=== PATIENT | female | born 1965 | race African-American/Black ===

== ENCOUNTER → 2016-07-27 18:35 | Outpatient (CLI) | payer MEDICAID | END | disposition home or self-care (01) | LOC: D.LABREF 18:35 | DX: M17.11 Unilateral primary osteoarthritis, right knee (principal) ==

== ENCOUNTER 2016-09-15 09:30 | Inpatient (IN) | payer MEDICAID ==
[~2016-09-15] VITALS: Ht 160 cm; Wt 130.9 kg
[2016-09-15 09:00] LABS: BASOPHILS 0.1 % (0-2); EOSINOPHILS 0.4 % (0-7); HEMOGLOBIN 13.4 g/dL (12-16); IMMATURE GRANULOCYTES 0.3 % (0-5); LYMPHOCYTES 37.3 % (15-50); MCH 31.5 pg (26.0-34.0); MCHC 31.9 g/dL (31.0-37.0); MCV 98.8 fL (80.0-100.0); MEAN PLATELET VOLUME 10.6 fL (7.4-10.4); MONOCYTES 7.4 % (2-11); NEUTROPHILS 54.5 % (40-80); PLATELET COUNT 247 10x3/uL (130-400); RBC 4.25 10x6/uL (4.00-5.40); WBC 6.9 10x3/uL (4.8-10.8)
[2016-09-15 09:18] LABS: CALC OSMOLALITY 276 mosm/kg (275-300); CALCIUM 9.5 mg/dL (8.5-10.1); CARBON DIOXIDE 28.7 mmol/L (21.0-32.0); CHLORIDE - SERUM 102 mmol/L (98-107); CREATININE - SERUM 0.8 mg/dL (0.6-1.3); GLUCOSE 91 mg/dL (74-106); POTASSIUM - SERUM 3.7 mmol/L (3.5-5.1); SODIUM 138 mmol/L (136-145); UREA NITROGEN 14 mg/dL (7-18); eGFR NON AFRICAN AMERICAN 80 mL/min (90-120)
[2016-09-15 09:20] LABS: INR 0.95 (0.85-1.17); PROTIME 12.5 SECONDS (11.6-15.0)
[2016-09-15 09:21] LABS: APTT 25.8 SECONDS (22.8-39.4)
[~2016-09-15 09:30] MED LIST: MUPIROCIN22 GM TOPICAL; NORVASC5 MG PO; TYLENOL #4 W/CO1 TAB PO; ZANTAC150 MG PO; ZOCOR40 MG PO; ZOLOFT50 MG PO
[2016-09-15 09:46] LABS: APPEARANCE HAZY (CLEAR); BILIRUBIN NEGATIVE (NEGATIVE); COLOR YELLOW (YELLOW); GLUCOSE NEGATIVE (NEGATIVE); KETONE NEGATIVE (NEGATIVE); LEUKOCYTE ESTERASE TRACE (NEGATIVE); NITRITE NEGATIVE (NEGATIVE); PROTEIN NEGATIVE (NEGATIVE); SPECIFIC GRAVITY 1.015 (1.005-1.020); UROBILINOGEN NORMAL (NORMAL)
[2016-09-15 09:47] LABS: BACTERIA MODERATE /hpf (NONE SEEN); EPITHELIAL CELLS 0-5 /hpf (0-5); MUCUS <1+ /lpf (NONE SEEN); WHITE CELLS - URINE 0-5 /hpf (0-5)
--- NOTE | 2016-09-15 13:53 | NUR ---
1000-DR LUCIA NOTIFIED OF ABNORMAL UA RESULTS. ORDERS RECD TO CALL IN BACTRIM DS 1 PO BID X 4 DAYS. CALLED TO [facility] IN [place]. 1015-ATTEMPTED TO REACH PATIENT TO LEAF COVERER PRESCRIPTION. NO ANSWER. 1200-ATTEMPTED TO REACH PATIENT TO LEAF COVERER PRESCRIPTION. NO ANSWER. 1345-PATIENT NOTIFIED OF UTI AND NEED TO LEAF COVERER PRESCRIPTION FOR BACTRIM. STRESSED IMPORTANCE OR SURGERY CAN BE CANCELLED IF UTI IS STILL PRESENT DAY OF SURGERY.
[2016-09-19] VITALS (12 sets, daily range): BP systolic 106–148; BP diastolic 50–98; Ht 160 cm; Wt 130.9 kg
[2016-09-19 06:13] LABS: HCG URINE NEGATIVE (NEGATIVE)
[2016-09-19 06:33] LABS: APPEARANCE CLEAR (CLEAR); BILIRUBIN NEGATIVE (NEGATIVE); COLOR YELLOW (YELLOW); GLUCOSE NEGATIVE (NEGATIVE); KETONE NEGATIVE (NEGATIVE); LEUKOCYTE ESTERASE NEGATIVE (NEGATIVE); NITRITE NEGATIVE (NEGATIVE); PROTEIN NEGATIVE (NEGATIVE); SPECIFIC GRAVITY 1.015 (1.005-1.020); UROBILINOGEN NORMAL (NORMAL)
--- NOTE | 2016-09-19 09:28 | NUR ---
WOUND VAC TO RIGHT KNEE INTACT
--- NOTE | 2016-09-19 09:45 | NUR ---
PATIENT RECEIVED TO FLOOR FROM PACU VIA BED. PATIENT A/O X4. NO SIGNS OF DISTRESS NOTED. DENIES PAIN. DRESSING TO RIGHT KNEE CLEAN, DRY AND INTACT. PREVENA DRESSING INTACT. ORIENTED TO ROOM. SCDS ON BILATERALLY. INCENTIVE SPIROMETER AND TEACHING PROVIDED. STATES UNDERSTANDING AND DEMONSTRATES CORRECT USE. EXPLAINED TO PATIENT SHE WOULD BE ON BEDREST TODAY AND PHYSICAL THERAPY WOULD HAVE HER UP AND MOVING SOME TOMORROW. STATES UNDERSTANDING. DENIES NEEDS. SIDE RAILS UP X3. BED IN LOW POSITION. CALL LIGHT IN REACH. BED ALARM ON. YELLOW FALL RISK BAND PLACE ON PATIENT. WILL CONTINUE TO MONITOR.
--- NOTE | 2016-09-19 12:48 | NUR ---
PATIENT ALERT IN BED TALKING ON PHONE. NO SIGNS OF DISTRESS NOTED. SCHEDULED IV ABX INITIATED. SIDE RAILS UP X2. BED IN LOW POSITION. CALL LIGHT IN REACH.
--- NOTE | 2016-09-19 14:20 | NUR ---
ALERT IN BED WATCHING TV. NO SIGNS OF DISTRESS NOTED. DENIES PAIN. SIDE RAILS UP X2. BED IN LOW POSITION. CALL LIGHT IN REACH. BED ALARM ON.
--- NOTE | 2016-09-19 15:29 | NUR ---
Patient Name: BARBARA BEAR Admission Status: Elective Accout number: [id number] Admission Date: 09-19-2016 : 1965 Admission Diagnosis: Attending: CONNIE Current LOS: 1 Anticipated DC Date: Planned Disposition: Primary Insurance: [place] Discharge Planning Comments: CM met with patient to assess discharge planning/needs. Patient states that she lives at home with her adult children (24&16) & her sister. She has 2 steps to enter without a rail. Her discharge plan is to return home via [facility] and have OP PT in [place]. CM will set up all necessary equipment prior to discharge. CM will continue to follow and assist. PCP: [facility]: Transportation: [facility] Batting Machine Operator Insulation: Iris Bragg * Is the patient Alert and Oriented? Yes 0 * How many steps to enter\exit or inside your home? 2 0 * PCP Iris Yun 0 * Pharmacy [facility] 0 * Preadmission Environment Home with Family 0 * ADLs Independent 0 * Equipment None 0 * Community resources currently utilized None 0 * Additional services required to return to the preadmission environment? Yes 0 * Can the patient safely return to the preadmission environment? Yes 0 * Has this patient been hospitalized within the prior 30 days at any hospital? No 0 Grand Total: 0
--- NOTE | 2016-09-19 17:02 | NUR ---
ALERT IN BED. NO SIGNS OF DISTRESS NOTED. DENIES PAIN. SIDE RAILS UP X2. BED IN LOW POSITION. CALL LIGHT IN REACH. BED ALARM ON.
--- NOTE | 2016-09-19 21:40 | NUR ---
PATIENT SITTING UP IN BED. ALERT AND ORIENTED. CPM REMOVED. SCHEDULED MEDS GIVEN. SHIFT ASSESSMENT COMPLETED. DENIES ANY NEEDS OR PAIN AT THIS TIME. BED LOW. CALL LIGHT IN REACH. BED ALARM ON.
--- NOTE | 2016-09-20 01:03 | NUR ---
PT C/O SEVERE PAIN 10/10 TO RIGHT LEG. PRN NORCO GIVEN ORDERED. NO OTHER NEEDS VOICED AT THIS TIME.
[2016-09-20 04:00] VITALS: BP 133/70
[2016-09-20 05:01] LABS: HEMATOCRIT 34.9 % (36.0-48.0); HEMOGLOBIN 11.2 g/dL (12-16); MCH 31.6 pg (26.0-34.0); MCHC 32.1 g/dL (31.0-37.0); MCV 98.6 fL (80.0-100.0); MEAN PLATELET VOLUME 10.5 fL (7.4-10.4); RBC 3.54 10x6/uL (4.00-5.40); RDW 13.8 % (11.5-14.5); WBC 8.4 10x3/uL (4.8-10.8)
--- NOTE | 2016-09-20 07:30 | NUR ---
PATIENT RECEIVED ALERT IN MID BLANCO POSITION. NO SIGNS OF DISTRESS NOTED. CPM IN PLACE. C/O PAIN 01/24. SIDE RAILS UP X2. BED IN LOW POSITION. CALL LIGHT IN REACH. NO FURTHER NEEDS VOICED.
--- NOTE | 2016-09-20 07:36 | NUR ---
PERCOCET ADMINISTERED PER PRN ORDER.
--- NOTE | 2016-09-20 08:45 | NUR ---
PATIENT ALERT IN BED TALKING ON PHONE. SCHEDULED MEDICATION ADMINISTERED. SIDE RAILS UP X2. BED IN LOW POSITION. CALL LIGHT IN REACH. BED ALARM ON.
[2016-09-20 09:03] VITALS: BP 109/58
--- NOTE | 2016-09-20 11:05 | NUR ---
PATIENT ASSISTED UP TO RESTROOM ASSIST X1. BATHROOM CALL LIGHT IN REACH. INSTRUCTED TO CALL FOR ASSIST ONCE FINISHED. STATES UNDERSTANDING.
--- NOTE | 2016-09-20 11:19 | NUR ---
SITTING UP IN CHAIR. C/O PAIN 01/24. 1 TAB PERCOCET ADMINISTERED PER PRN ORDER. CALL LIGHT IN REACH.
--- NOTE | 2016-09-20 11:53 | NUR ---
ICE PACK PLACED TO RIGHT KNEE
[2016-09-20 12:39] VITALS: BP 100/56
--- NOTE | 2016-09-20 13:32 | NUR ---
ALERT IN BED. C/O PAIN 01/24. 1 TAB NORCO ADMINISTERED PER PRN ORDER. NO FURTHER NEEDS VOICED. SIDE RAILS UP X2. BED IN LOW POSITION. CALL LIGHT IN REACH.
--- NOTE | 2016-09-20 14:15 | NUR ---
PATIENT IN MID BLANCO POSITION RESTING WITH EYES CLOSED. RESPIRATIONS EVEN AND UNLABORED. SIDE RAILS UP X2. BED IN LOW POSITION. CALL LIGHT IN REACH.
--- NOTE | 2016-09-20 15:04 | NUR ---
Spoke with Litzy at [facility] and she stated that [facility] will deliver DME to patients home in [place]. CM to call [facility] when patient is on [facility] bus.
--- NOTE | 2016-09-20 16:34 | NUR ---
OP PT scheduled with [facility]. Spoke with Perla ([phone]) Patient is scheduled for PT at 09/23/16 @ 1400. Information faxed to [phone].
[2016-09-20 16:46] VITALS: BP 106/47
--- NOTE | 2016-09-20 17:08 | NUR ---
ALERT IN BED TALKING ON PHONE. NO SIGNS OF DISTRESS NOTED. RATES PAIN 10/10. 1 TAB PERCOCET PER PRN ORDER. NO FURTHER NEEDS VOICED. SIDE RAILS UP X2. BED IN LOW POSITION. CALL LIGHT IN REACH.
--- NOTE | 2016-09-20 18:15 | NUR ---
CPM TO RIGHT LEG. ICE PACK IN PLACE. DENIES NEEDS. SIDE RAILS UP X2. BED IN LOW POSITION. CALL LIGHT IN REACH.
[2016-09-20 20:00] VITALS: BP 100/45
--- NOTE | 2016-09-20 21:12 | NUR ---
PATIENT C/O PAIN 10/10 TO LEFT LEG. PRN PERCOCET GIVEN ORDERED. CPM REMOVED. SCHEDULED MEDS GIVEN. SHIFT ASSESSMENT COMPLETED. DENIES ANY OTHER NEEDS AT THIS TIME. BED LOW. CALL LIGHT IN REACH
[2016-09-21 04:00] VITALS: BP 112/58
[2016-09-21 06:59] LABS: HEMATOCRIT 34.2 % (36.0-48.0); HEMOGLOBIN 10.9 g/dL (12-16); MCH 31.5 pg (26.0-34.0); MCHC 31.9 g/dL (31.0-37.0); MCV 98.8 fL (80.0-100.0); MEAN PLATELET VOLUME 9.8 fL (7.4-10.4); RBC 3.46 10x6/uL (4.00-5.40); WBC 8.7 10x3/uL (4.8-10.8)
--- NOTE | 2016-09-21 07:10 | NUR ---
PT REC'D FROM COURT JOVEL. RESTING IN BED WATCHING TV. AAOX4. CPM TO R LEG AT 45 DEGREES. RATING CURRENT PAIN IN R KNEE 12/25. NO TIME AT FOR PAIN MEDICATION AND PT KNOWS THIS. DRESSING CDI. WOUND VAC CURRENTLY PULLING NO DRAINAGE. BED LOW, CALL LIGHT IN REACH, DENIES NEEDS. CPOC.
--- NOTE | 2016-09-21 08:32 | NUR ---
CPM TAKEN OFF AT THIS TIME. BREAKFAST TRAY SET UP AND MENU FILLED OUT AT THIS TIME.
[2016-09-21] MEDS ORDERED: ELIQUIS2.5 MG PO (08:47)
[2016-09-21] MEDS ORDERED: HYDROCODONE-APA1 TAB PO (08:48)
[2016-09-21 08:59] VITALS: BP 126/61
--- NOTE | 2016-09-21 09:38 | NUR ---
NATALIE spoke with [facility] (conf # [id number]) to set up transportation @ 12:30 to go home. NATALIE also spoke with Litzy at [facility] to let her know that the patient will be discharged @ 12:30 so they can deliver all DME. CM will continue to follow and assist as needed
--- NOTE | 2016-09-21 11:49 | NUR ---
PATIENT IS SITTING UP IN THE CHAIR. PATIENT STATED SHE IS BEING DISCHARGED AND REQUESTED HELP GETTING HER THINGS PUT INTO A BAG. PUT ALL THE THINGS IN THE BAG THAT PATIENT REQUESTED. PATIENT DENIES OTHER NEEDS. PATIENT HAS A PROVENA WOUND VAC TO RIGHT KNEE. NO SIGNS OF DISTRESS NOTED. CALL LIGHT IN REACH.
--- NOTE | 2016-09-21 12:28 | NUR ---
DC INSTRUCTIONS DISCUSSED WITH PT AT THIS TIME. IV TO L AC DC'D WITH CATHETER INTACT. SITTING UP IN CHAIR AT BEDSIDE. AWAITING WC ARRIVAL.
--- NOTE | 2016-09-21 14:34 | NUR ---
Patient discharge home today via [facility]. No other needs specified. All DME will be delivered today from [facility]
--- NOTE | 2016-09-22 09:58 | OP ---
PATIENT NAME: BARBARA BEAR MEDICAL RECORD: [id number] :67 LOCATION:[id number] ADMISSION DATE:09/19/16 SURGEON: GIL LUCIA MD DATE OF OPERATION: 09/19/2016 DATE OF OPERATION: 09/19/2016 PREOPERATIVE DIAGNOSIS: Severe degenerative arthritis of the right knee. POSTOPERATIVE DIAGNOSIS: Severe degenerative arthritis of the right knee. PROCEDURE: Right total knee arthroplasty. SURGEON: Gil Lucia MD. ANESTHESIA: General. INTRAOPERATIVE COMPLICATIONS: None. SUMMARY OF PATHOLOGIC FINDINGS: The patient had severe degenerative arthritis of the right knee consistent with the preoperative diagnosis. IMPLANTS USED: Devorah triathlon press fit total knee arthroplasty size 4 distal femur, non-polyethylene insert ____ press fit tibial baseplate and a 31 press fit patella. OPERATIVE SUMMARY IN DETAIL: After obtaining the appropriate preoperative orthopedic surgery consent as well as anesthetic consultation, evaluation and clearance, the patient was brought to the operating room and placed on the operating table in supine position. After general laryngeal mask was administered, tourniquet was placed about the proximal aspect of the right lower extremity. Right lower extremity was then prepped and draped in routine sterile fashion. The leg was elevated and exsanguinated, tourniquet was inflated to ____ mmHg. Routine midline incision was taken down for paramedian arthrotomy. Patella was everted and distal femur was exposed. Soft tissue excision was done in the usual fashion. Intramedullary guide hole was created for intramedullary-guided, cutting of the distal femur followed by complete exposure of the proximal tibia. Soft tissue excision likewise was removed, tear followed by intramedullary guide hole creation for intramedullary-guided cutting of the proximal tibia, appropriate measurements were taken. Chamfer cuts were made on the distal femur. Final preparations on the distal femur and the proximal tibia were made. Trials were put into place corresponding to the above implants thought to be stable in all planes. A very arthritic ____ articular surface was excised and was prepared for press fit 31 patellar component. The knee was irrigated in pulsatile lavage fashion until all debris was removed. Then the tibial baseplate was press fit followed by the placement of the polyethylene and the femoral baseplate. The patella was press fit likewise, the wound was again copiously irrigated and then closed using #2 Ethibond followed by #1 Vicryl, 2-0 Vicryl and skin rudy. Sterile dressings were applied. The patient was awakened and taken to the recovery room in stable condition. All final needle and sponge counts were correct. TRANSINT:[id number] Voice Confirmation ID: [id number] DOCUMENT ID: [id number] OPERATIVE REPORT [id number] BARBARA BEAR MD, GIL MARTÍNEZ at 0958 CC: [id number] DICTATION DATE: 09/19/16 0857 CHAIN DYER: 09/19/16 1046 DIS IN 09/21/16 [place] [id number] [place] [id number]
== END 2016-09-21 12:56 | disposition home or self-care (01) | DRG 470 ==
LOC: D.SDCHOLD 09-19 05:10 → D.MS 09-19 05:10 → D.SDCHOLD 09-19 08:00 → D.MS 09-19 09:50
PROVIDERS: ADMIT Orthopaedic Surgery
PROC: 0SRC0JZ Replacement of Right Knee Joint with Synthetic Substitute, Open Approach (ICD-10-PCS; principal; 2016-09-19 08:00)
DX: M17.11 Unilateral primary osteoarthritis, right knee (principal); I10 Essential (primary) hypertension; G47.30 Sleep apnea, unspecified

== ENCOUNTER → 2018-03-29 18:16 | Outpatient (CLI) | payer MEDICAID ==
[2016-09-19 10:11] VITALS: BMI 51.1
[~2018-03-29 18:16] MED LIST changes: +ELIQUIS2.5 MG PO; +HYDROCODONE-APA1 TAB PO
[2018-03-29 19:30] LABS: BASOPHILS 0.2 % (0-2); EOSINOPHILS 0.9 % (0-7); HEMATOCRIT 40.6 % (36.0-48.0); LYMPHOCYTES 40.1 % (15-50); MCH 31.2 pg (26.0-34.0); MCV 97.4 fL (80.0-100.0); MONOCYTES 8.6 % (2-11); NEUTROPHILS 50.2 % (40-80); RBC 4.17 10x6/uL (4.00-5.40); RDW 13.9 % (11.5-14.5); WBC 6.4 10x3/uL (4.8-10.8)
[2018-03-29 19:31] LABS: PLATELET COUNT 246 10x3/uL (130-400)
[2018-03-29 20:38] LABS: ERYTHROCYTE SEDIMENTATION RATE 46 mm/hr (0-30)
== END | disposition home or self-care (01) ==
LOC: D.LABREF 18:16
PROVIDERS: Orthopaedic Surgery
DX: M25.561 Pain in right knee (principal)

== ENCOUNTER → 2018-04-30 16:58 | Outpatient (CLI) | payer MEDICAID ==
[2016-09-19 10:11] VITALS: BMI 51.1
[2018-04-30 17:08] LABS: BASOPHILS 0.2 % (0-2); EOSINOPHILS 0.9 % (0-7); HEMATOCRIT 41.9 % (36.0-48.0); HEMOGLOBIN 13.5 g/dL (12-16); IMMATURE GRANULOCYTES 0.2 % (0-5); LYMPHOCYTES 40.3 % (15-50); MCH 31.1 pg (26.0-34.0); MCHC 32.2 g/dL (31.0-37.0); MCV 96.5 fL (80.0-100.0); MEAN PLATELET VOLUME 11.2 fL (7.4-10.4); MONOCYTES 5.9 % (2-11); NEUTROPHILS 52.5 % (40-80); PLATELET COUNT 241 10x3/uL (130-400); RBC 4.34 10x6/uL (4.00-5.40); RDW 13.5 % (11.5-14.5); WBC 6.3 10x3/uL (4.8-10.8)
[2018-04-30 17:25] LABS: ALKALINE PHOSPHATASE 84 U/L (46-116); ALT (SGPT) 18 U/L (10-68); BILIRUBIN - TOTAL 0.35 mg/dL (0.2-1.3); CALC OSMOLALITY 278 mosm/kg (275-300); CALCIUM 9.7 mg/dL (8.5-10.1); CARBON DIOXIDE 29.2 mmol/L (21.0-32.0); CHLORIDE - SERUM 102 mmol/L (98-107); CREATININE - SERUM 0.8 mg/dL (0.6-1.3); GLUCOSE 91 mg/dL (74-106); PROTEIN - SERUM 8.1 g/dL (6.4-8.2); SODIUM 139 mmol/L (136-145); UREA NITROGEN 15 mg/dL (7-18); eGFR NON AFRICAN AMERICAN 80 mL/min (90-120)
== END | disposition home or self-care (01) ==
LOC: D.LABREF 16:58
PROVIDERS: Orthopaedic Surgery
DX: M17.12 Unilateral primary osteoarthritis, left knee (principal)